=== PATIENT | female | born 1945 | race Caucasian/White ===

== ENCOUNTER 2016-11-23 15:47 | Inpatient (IN) | payer MEDICARE, BC ==
--- NOTE | ~2016-11-23 | PREOPHP ---
PreOp History and Physical [id number] [place]. [address] NAME: EILEEN PIZARRO : 47 STATUS : ADM IN [facility]#: [id number] AGE: 70 ADM/REG DATE : 11/23/16 MR#: [id number] REPORT SERV DATE: 11/24/16 DICTATED BY: KONSTANTIN FAUSTIN III DATE: 11/24/16 REPORT STATUS : Draft TRANSCRIBED BY: ROMAN DATE: 11/24/16 HISTORY OF PRESENT ILLNESS: This 70-year-old female was admitted to the hospital emergently from the office with evidence for severe nausea, vomiting, and dehydration. The patient presented for routine followup after previous hemigastrectomy for gastric neoplasm. On presentation to the office, the patient stated that for the last several days she has had nausea, minimal p.o. intake, and some vomiting. She had [facility] and felt to have a urinary tract infection based on complains of urinary frequency and urgency. UA's have been performed which were nondiagnostic. The patient presented to my office with evidence for severe dehydration, it was felt that emergent admission to the hospital was indicated. PAST MEDICAL HISTORY: 1. Congestive heart failure in the past. 2. Hypertension. 3. Transient ischemic attack in the past. 4. Gastroesophageal reflux disease. 5. Arthritis. 6. History of coronary artery disease. 7. 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 PAST SURGICAL HISTORY: Includes coronary artery stent placement, hysterectomy, and partial gastrectomy. FAMILY HISTORY: Positive for lung cancer and colon cancer. SOCIAL HISTORY: No history of tobacco or alcohol use. MEDICATIONS: Aspirin, atorvastatin, carvedilol, Plavix, Lasix, isosorbide, levothyroxine, and valsartan. REVIEW OF SYSTEMS: The patient complains of nausea, vomiting, severe dehydration, and weakness. OBJECTIVE/PHYSICAL EXAMINATION: GENERAL: This is a female who appears acutely ill. She is alert and oriented x3. HEENT: Her mucous membranes are very dry. HEENT unremarkable. SKIN: Turgor is very loose. NEUROLOGIC: Cranial nerves II through XII are normal. LUNGS: Clear. CARDIAC: Normal. ABDOMEN: Soft and nontender. ASSESSMENT: 1. A 70-year-old female with severe nausea, vomiting, and dehydration. 2. Status post hemigastrectomy. PreOp History and Physical [address] [address] NAME: EILEEN PIZARRO : 47 STATUS : ADM IN PAT#: [id number] AGE: 70 ADM/REG DATE : 11/23/16 MR#: [id number] REPORT SERV DATE: 11/24/16 DICTATED BY: KONSTANTIN FAUSTIN III DATE: 11/24/16 REPORT STATUS : Draft TRANSCRIBED BY: ROMAN DATE: 11/24/16 3. History of transient ischemic attack. 4. Hypertension. 5. History of congestive heart failure. PLAN: The patient will be admitted to the hospital emergently for IV hydration and further workup including CT scan of the abdomen and pelvis for realm of possibly of postoperative abdominal abscess. This plan has been explained to the patient. Her questions have been answered. She understands and agrees to this as planned. RHGillian/ROMAN Konstantin Faustin III, M.D. / [id number]
[~2016-11-23 15:47] MED LIST: ACET500CAP PO; ALEVE220 MG PO; ASAB PO; ASPERCREME TOP; BEN25 PO; BRILINTA90 MG PO; COREG25 PO; COREG6 PO; DIOV80 PO; EXFORGE1 TAB PO; HALF81 PO; IMDUR30 PO; IMDUR60 PO; KLOR-CON 1010 MEQ PO; L20 PO; L40 PO; LEVOTHYROXIN25 MCG PO; LEVOTHYROXIN75 MCG PO; LIPITOR40 PO; LISINOPRIL40 MG PO; MOBIC15 MG PO; MULTIPLE VIT PO; MULTIVIT/MIN PO; NITROMIST400 MCG SL; NITROSPRAY SL; NITROSTAT0.4 MG SL; NTG150 SL; PERCOCET 7.5/321 TAB PO; PLAVIX PO; PRILO PO; PRIN10 PO; REFRES1 OPH; SYN1 PO; VITAMIN B-12 LIQUID SL; ZANTAC150 MG PO
[2016-11-23 17:14] LABS: BASOPHILS 0.4 %; BASOPHILS ABSOLUTE 0.02 10/3/uL (0.0-0.16); EOSINOPHILS ABSOLUTE 0.21 10/3/uL (0.0-0.53); IMMATURE GRANULOCYTES 0.2 %; IMMATURE GRANULOCYTES ABSOLUTE 0.01 10/3/uL (0.0-0.11); LYMPHOCYTES ABSOLUTE 1.57 10/3/uL (0.67-4.30); MEAN CORPUS HGB CONC 33.5 g/dL (32.0-36.0); MEAN CORPUSCULAR HEMOGLOB 29.8 pg (26.0-34.0); MEAN PLATELET VOLUME 10.8 fL (9.2-13.0); MONOCYTES 6.7 %; MONOCYTES ABSOLUTE 0.35 10/3/uL (0.21-1.20); NEUTROPHILS 58.7 %; NEUTROPHILS ABSOLUTE 3.07 10/3/uL (2.02-8.40); PLATELET COUNT 267 10/3/uL (150-400); WHITE BLOOD CELLS 5.2 10/3/uL (4.5-10.5)
[2016-11-23 17:15] LABS: HEMATOCRIT 40.6 % (36.0-48.0); HEMOGLOBIN 13.6 g/dL (12.0-16.0); MANUAL DIFF NO %; RED CELL COUNT 4.56 10/6/uL (4.0-5.6)
[2016-11-23] MEDS ORDERED: L40 PO (17:20)
[2016-11-23] MEDS ORDERED: K-TABS10 MEQ PO (17:21)
[2016-11-23] MEDS ORDERED: PLAVIX PO (17:21)
[2016-11-23] MEDS ORDERED: COREG6 PO (17:21)
[2016-11-23] MEDS ORDERED: IMDUR60 PO (17:21)
[2016-11-23] MEDS ORDERED: LEVOTHYROXIN75 MCG PO (17:21)
[2016-11-23] MEDS ORDERED: TEARS PURE OPH (17:22)
[2016-11-23] MEDS ORDERED: DIOV80 PO (17:22)
[2016-11-23] MEDS ORDERED: MULTIVITAMI1 PO (17:22)
[2016-11-23] MEDS ORDERED: ASAB PO (17:22)
[2016-11-23] MEDS ORDERED: BEN25 PO (17:23)
[2016-11-23 17:30] LABS: A/G RATIO 1.1 (0.7-1.9); ALBUMIN 3.7 G/DL (3.5-5.0); CALCIUM, SERUM 8.8 MG/DL (8.5-10.4); CHLORIDE, SERUM 104 MMOL/L (96-112); CO2 (CARBON DIOXIDE) 27 MMOL/L (24-34); CREATININE 0.71 MG/DL (0.55-1.02); GFR AFRICAN AMERICAN 101 ML/MIN (>=60); GFR NON AFRICAN AMERICAN 87 ML/MIN (>=60); GLOBULIN 3.3 G/DL (2.5-4.1); GLUCOSE, SERUM 93 MG/DL (60-99); POTASSIUM, SERUM 3.5 MMOL/L (3.5-5.3); SGOT(AST) 19 U/L (5-40); SGPT(ALT) 32 U/L (5-65); SODIUM, SERUM 140 MMOL/L (135-148); TOTAL BILIRUBIN 0.4 MG/DL (0-1.2)
[2016-11-23 17:31] LABS: ALKALINE PHOSPHATASE 80 U/L (45-117); BUN (BLOOD UREA NITROGEN) 19 MG/DL (6-23)
[2016-11-23 19:30] LABS: ASCORBIC ACID (UR NOT ORDER) NEG (NEG); BILIRUBIN, URINE NEGATIVE (NEG); KETONE, URINE NEGATIVE (NEG); LEUKOCYTE ESTERASE(NOT OR TRACE (NEG); WBC (NOT ORDERED) (RFLEX) 2 (0-5)
[2016-11-25 04:41] LABS: BASOPHILS 0.6 %; BASOPHILS ABSOLUTE 0.02 10/3/uL (0.0-0.16); EOSINOPHILS 8.5 %; HEMATOCRIT 37.6 % (36.0-48.0); HEMOGLOBIN 12.3 g/dL (12.0-16.0); IMMATURE GRANULOCYTES 0.3 %; IMMATURE GRANULOCYTES ABSOLUTE 0.01 10/3/uL (0.0-0.11); LYMPHOCYTES 42.4 %; MEAN CORPUS HGB CONC 32.7 g/dL (32.0-36.0); MEAN CORPUSCULAR HEMOGLOB 28.7 pg (26.0-34.0); MEAN CORPUSCULAR VOLUME 87.9 fL (80-100); MEAN PLATELET VOLUME 10.4 fL (9.2-13.0); MONOCYTES 5.6 %; NEUTROPHILS 42.6 %; NEUTROPHILS ABSOLUTE 1.51 10/3/uL (2.02-8.40); PLATELET COUNT 206 10/3/uL (150-400); RBC DISTRIBUTION WIDTH 14.2 % (12.0-16.0); RED CELL COUNT 4.28 10/6/uL (4.0-5.6); WHITE BLOOD CELLS 3.5 10/3/uL (4.5-10.5)
[2016-11-25 04:50] LABS: MANUAL DIFF NO %
[2016-11-25 04:56] LABS: CALCIUM, SERUM 8.8 MG/DL (8.5-10.4); CHLORIDE, SERUM 112 MMOL/L (96-112); CO2 (CARBON DIOXIDE) 25 MMOL/L (24-34); CREATININE 0.78 MG/DL (0.55-1.02); GFR AFRICAN AMERICAN 90 ML/MIN (>=60); GFR NON AFRICAN AMERICAN 78 ML/MIN (>=60); POTASSIUM, SERUM 4.1 MMOL/L (3.5-5.3); SODIUM, SERUM 145 MMOL/L (135-148)
[2016-11-25 05:01] LABS: BUN (BLOOD UREA NITROGEN) 4 MG/DL (6-23); GLUCOSE, SERUM 114 MG/DL (60-99)
[2016-11-25] MEDS ORDERED: REG PO (08:03)
== END 2016-11-25 11:34 | disposition home or self-care (01) | DRG 641 ==
LOC: 4SO 15:47
PROVIDERS: Surgery
DX: E86.0 Dehydration (principal); I11.0 Hypertensive heart disease with heart failure; I50.9 Heart failure, unspecified; Z86.73 Personal history of transient ischemic attack (TIA), and cerebral infarction without residual deficits; Z90.3 Acquired absence of stomach [part of]; I25.10 Atherosclerotic heart disease of native coronary artery without angina pectoris; Z95.5 Presence of coronary angioplasty implant and graft; K21.9 Gastro-esophageal reflux disease without esophagitis; M19.90 Unspecified osteoarthritis, unspecified site; Z79.82 Long term (current) use of aspirin; Z79.02 Long term (current) use of antithrombotics/antiplatelets
CPT/HCPCS: 74176; 80048; 80053; 81001; 85025; A9270-GY; J2405